=== PATIENT | male | born 1995 | race Caucasian/White ===

== ENCOUNTER 2021-05-07 08:58 | Outpatient (REF) | payer OTHER, MEDICAID, SELFPAY | END 2021-05-07 08:59 | disposition home or self-care (01) | LOC: HO.HAP 08:58 | PROVIDERS: Visit Provider Internal Medicine Cardiovascular Disease | DX: Z46.1 Encounter for fitting and adjustment of hearing aid (principal) | CPT/HCPCS: V5266 ==